=== PATIENT | male | born 1995 | race Two or more races ===

== ENCOUNTER 2019-05-02 09:05 | Emergency (ER) | payer OTHER ==
[~2019-05-02] VITALS: Ht 170.2 cm; Wt 86.2 kg
[2019-05-02 09:20] VITALS: BP 144/88
--- NOTE | 2019-05-02 09:20 | NUR ---
ED Nurse Note: patient ambulated into ER with a c/o shoulder injury. Patient states he was at work and he heard a crack in his shoulder while carrying a linen cart upstairs with his coworker. Patient is aaox4, on room air with stable vital signs. Patient states a pain score of 4/10. No acute distress noted.
--- NOTE | 2019-05-02 09:25 | NUR ---
ED Nurse Note: ERMD is at bedside.
--- NOTE | 2019-05-02 09:34 | Emergency Room Report ---
History of Present Illness General Chief Complaint: Shoulder Injury Source: Patient Present Illness HPI 23-year-old male who reported injury to right shoulder while lifting a heavy cart of linens above stairs. Patient reports injury happened 1 hour prior to arrival, and is moderate in severity. He did not take any medications. Injury happened at work and is here for initial examination. Patient states he felt a cracking-like sensation of his shoulder and now when he abducts lift shoulder above his head he hears a cracking noise. He denies any other injuries, head injury, loss of consciousness. He denies any numbness or tingling to the distal arm Allergies: Coded Allergies: No Known Allergies (Unverified , 05/02/19) Nursing Documentation-[facility] Past Medical History: No Stated History Review of Systems Constitutional: Denies: chills, fever Respiratory: Denies: cough, shortness of breath Cardiovascular: Denies: chest pain, palpitations Gastrointestinal: Denies: diarrhea, vomiting Genitourinary: Denies: hematuria, pain Musculoskeletal: Reports: joint pain; Denies: joint swelling Skin: Denies: rash, lesions Neurological: Denies: headache, dizziness Physical Exam Vital Signs Date Time Temp Pulse Resp B/P (MAP) Pulse Ox O2 Delivery O2 Flow Rate FiO2 05/02/19 09:11 98.2 72 19 144/88 (106) 99 Room Air Sp02 EP Interpretation: reviewed General Appearance: well appearing, no apparent distress, non-toxic Head: normocephalic, atraumatic Eyes: bilateral eye normal inspection ENT: hearing grossly normal, EOM grossly intact, moist mucus membranes Neck: supple Respiratory: lungs clear, normal breath sounds, no respiratory distress, speaking full sentences Cardiovascular #1: regular rate, rhythm, normal capillary refill Cardiovascular #2: 2+ radial (R), 2+ radial (L) Gastrointestinal: soft, non-distended Rectal: deferred Musculoskeletal: normal inspection, back normal, normal range of motion, moves extm spontaneously, tender, other - Right shoulder: tenderness anterior of the glenohumeral joint. Patient has full range of motion but reports pain with internal rotation. Distal sensation and motor strength strength 5/5 Neurologic: grossly normal Psychiatric: mood/affect normal Skin: warm/dry, normal turgor Medical Decision Making ER Course Right shoulder injury at work ported 1 hour prior to arrival. Noted tenderness to the anterior glenohumeral joint. And pain with internal rotation. Full range of motion distally and normal discharge sensory function. No other injuries Will perform shoulder x-ray to look for signs of fracture. Other X-Ray Diagnostic Results Other X-Ray Diagnostic Results : # of Views/Limited Vs Complete: 3 View Indication: Pain Interpretation: no dislocation, no soft tissue swelling, no fractures Last Vital Signs Date Time Temp Pulse Resp B/P (MAP) Pulse Ox O2 Delivery O2 Flow Rate FiO2 05/02/19 09:11 98.2 72 19 144/88 (106) 99 Room Air Disposition: HOME, SELF-CARE Condition: Stable Scripts Ibuprofen* (MOTRIN*) 600 Mg Tablet 600 MG ORAL Q6H PRN for For Pain, #20 TAB 0 Refills Prov: Jayjay Graham M.D. 05/02/19 Patient Instructions: Shoulder Pain, Shoulder Sprain Additional Instructions: Please follow-up with orthopedist in 2 to 3 days for further testing and reevaluation. Take anti-inflammatories as prescribed. If you have any change in sensation or pain to the lower arm please return immediately to the emergency room Jayjay Graham M.D. May 02, 2019 09:34
[2019-05-02] MEDS ORDERED: IBUPROFEN600 MG ORAL (10:07)
[2019-05-02 10:25] VITALS: BP 144/88
--- NOTE | 2019-05-02 10:25 | NUR ---
ER DISCHARGE NOTE: Patient is cleared to be discharged per ERMAraceli Graham, pt is aox4, on room air, with stable vital signs. pt was given dc and prescription instructions, pt was able to verbalize understanding, pt id band removed without complications. pt is able to ambulate with steady gait. pt took all belongings.
--- NOTE | 2019-05-02 13:18 | Diagnostic Imaging Report ---
EXAM: XR Right Shoulder Complete, 2 or More Views CLINICAL HISTORY: PAIN TECHNIQUE: Two or more views of the right shoulder. COMPARISON: None FINDINGS: Bones/joints: No displaced fracture or dislocation identified. Joint space is maintained. No bony lesion. Soft tissues: Normal. IMPRESSION: No displaced fracture or dislocation identified.
== END 2019-05-02 10:25 | disposition home or self-care (01) ==
LOC: EEVIPCON 09:40 → EMR 09:40
DX: S49.91XA Unspecified injury of right shoulder and upper arm, initial encounter (principal); X50.0XXA Overexertion from strenuous movement or load, initial encounter; Y92.9 Unspecified place or not applicable
CPT/HCPCS: 99283